=== PATIENT | female | born 1960 ===

== ENCOUNTER 2023-09-15 03:49 | Inpatient (IN) | payer OTHER ==
[2023-09-15] MEDS: CEFAZOLIN 1 GM in DEXTROSE 5%-WATER - 50 ML IVPB ONE (06:01)
[2023-09-15] MEDS ORDERED: ceFAZolin SODIUM 1 GM VIAL ONE ×2 (09:10→18:15)
[2023-09-15 09:31] LABS: BASO % 0.4 % (0-2.0); EOS % 1.7 % (0-4.5); LYMPH % 23.2 % (8-40); MCH 30.6 pg (25.7-33.7); MCHC 34.3 g/dl (32.0-36.0); MEAN CELL VOLUME 89.1 fl (80-96); MEAN PLT VOLUME 7.7 fl (7.5-11.1); MONO % 5.7 % (3.8-10.2); PLATELET COUNT 346 10^3/uL (134-434); RBC 3.92 M/mm3 (3.60-5.2); RDW 22.3 % (11.6-15.6); WHITE BLOOD COUNT 5.5 K/mm3 (4.0-10.0)
[2023-09-15 09:35] LABS: INR 1.08 (0.83-1.09); PROTHROMBIN TIME (PATIENT) 12.5 SEC (9.7-13.0)
[2023-09-15 10:21] LABS: POTASSIUM 4.2 mmol/L (3.5-5.1)
[2023-09-15 10:25] LABS: BLOOD UREA NITROGEN 8.3 mg/dL (7-18); CALCIUM 9.3 mg/dL (8.5-10.1)
[2023-09-15 10:26] LABS: ALBUMIN 3.9 g/dl (3.4-5.0)
[2023-09-15 10:29] LABS: BILIRUBIN,TOTAL 0.4 mg/dL (0.2-1); CREATININE 0.9 mg/dL (0.55-1.3)
[2023-09-15 10:30] LABS: TOT PROT 7.1 g/dl (6.4-8.2)
[2023-09-15] MEDS ORDERED: HEPARIN NA (PORCINE) 5,000 UNITS/ML 1ML VIAL ONE (10:49)
[2023-09-15] MEDS ORDERED: INDOCYANINE GREEN 25 MG/10 ML VIAL IVPUSH ONE (10:49)
[2023-09-15] MEDS ORDERED: BUPIVACAINE HCL/PF 0.25% (2.5MG/ML) 10 ML VIAL ONE ×2 (10:49→13:17)
[2023-09-15] MEDS ORDERED: CEFOXITIN SODIUM 2 GM IVPB ONE (10:50)
[2023-09-15] MEDS ORDERED: ROCURONIUM BROMIDE 50 MG/5 ML SYRINGE ONE ×2 (11:26→14:17)
[2023-09-15] MEDS ORDERED: SUCCINYLCHOLINE CHLORIDE 200 MG/10 ML SYRINGE ONE (11:26)
[2023-09-15] MEDS ORDERED: PROPOFOL 20 ML ONE ×2 (11:26→16:10)
[2023-09-15] MEDS ORDERED: MIDAZOLAM HCL 2 MG/2 ML SINGLE DOSE VIAL ONE (11:27)
[2023-09-15] MEDS ORDERED: PROMETHAZINE HCL 25 MG/1 ML VIAL IVPB PRN (11:39)
[2023-09-15] MEDS ORDERED: ONDANSETRON 4 MG/2 ML VIAL IVPUSH PRN (11:39)
[2023-09-15] MEDS: HEPARIN NA (PORCINE) 5,000 UNITS/ML 1ML VIAL SQ ONE (12:45)
[2023-09-15] MEDS: cefOXitin SODIUM 2 GM VIAL (RESTRICTED TO ID) IVPB ONE (13:00)
[2023-09-15] MEDS: BUPIVACAINE HCL/PF 0.25% (2.5MG/ML) 10 ML VIAL IJ ONE ×2 (13:10)
[2023-09-15] MEDS: INDOCYANINE GREEN 25 MG/10 ML VIAL IVPUSH ONE (14:44)
[2023-09-15] MEDS ORDERED: morphine SULFATE 4 MG/ML VIAL IVPUSH PRN (17:13)
[2023-09-15] MEDS ORDERED: LACTATED RINGERS SOLUTION 1,000 ML/1,000 ML INFUS.BAG IV SCH (18:30)
[2023-09-15 18:33] LABS: POTASSIUM 4.3 mmol/L (3.5-5.1)
[2023-09-15 18:34] LABS: CALCIUM 8.8 mg/dL (8.5-10.1)
[2023-09-15 18:35] LABS: BLOOD UREA NITROGEN 9.6 mg/dL (7-18)
[2023-09-15 18:39] LABS: CREATININE 0.8 mg/dL (0.55-1.3)
[2023-09-15] MEDS: CEFAZOLIN SODIUM 2 GM in DEXTROSE 5%-WATER 100 ML IVPB SCH (18:50)
[2023-09-15] MEDS: ACETAMINOPHEN 1000 MG/100 ML BAG IVPB SCH ×2 (20:24→22:00)
[2023-09-15] MEDS: LACTATED RINGERS SOLUTION 1,000 ML IV SCH (22:00)
[2023-09-15] MEDS: INSULIN ASPART SLIDING SCALE (NOVOLOG) 1 VIAL SQ SCH (22:13)
[2023-09-16] MEDS ORDERED: oxyCODONE HCL 5 MG TABLET PO PRN (09:13)
[2023-09-16 09:14] LABS: BASO % 0.2 % (0-2.0); EOS % 0.1 % (0-4.5); HEMATOCRIT 28.4 % (32.4-45.2); HEMOGLOBIN 9.9 GM/dL (10.7-15.3); LYMPH % 16.3 % (8-40); MCH 30.5 pg (25.7-33.7); MCHC 34.6 g/dl (32.0-36.0); MEAN PLT VOLUME 8.1 fl (7.5-11.1); MONO % 7.4 % (3.8-10.2); PLATELET COUNT 264 10^3/uL (134-434); RBC 3.23 M/mm3 (3.60-5.2); WHITE BLOOD COUNT 6.6 K/mm3 (4.0-10.0)
[2023-09-16] MEDS ORDERED: morphine SULFATE 4 MG/ML VIAL IVPUSH PRN (09:19)
[2023-09-16 09:25] LABS: POTASSIUM 3.9 mmol/L (3.5-5.1)
[2023-09-16 09:29] LABS: BLOOD UREA NITROGEN 5.7 mg/dL (7-18)
[2023-09-16 09:31] LABS: CALCIUM 8.5 mg/dL (8.5-10.1)
[2023-09-16 09:32] LABS: CREATININE 0.8 mg/dL (0.55-1.3); MAGNESIUM 1.8 mg/dL (1.8-2.4); PHOSPHOROUS 3.5 mg/dL (2.5-4.9)
[2023-09-16] MEDS: IBUPROFEN 600 MG TABLET (FP) PO SCH (09:40)
[2023-09-16] MEDS: ENOXAPARIN NA (PORCINE) 40 MG/0.4 ML DISP.SYRIN SQ SCH (09:40)
[2023-09-16] MEDS: ACETAMINOPHEN 500 MG TABLET (FP) PO SCH (17:51)
[2023-09-16] MEDS: LACTATED RINGERS SOLUTION 1,000 ML IV SCH (20:39)
[2023-09-17 08:58] LABS: BASO % 0.3 % (0-2.0); EOS % 1.6 % (0-4.5); HEMOGLOBIN 10.3 GM/dL (10.7-15.3); MCH 30.5 pg (25.7-33.7); MCHC 34.5 g/dl (32.0-36.0); MEAN CELL VOLUME 88.5 fl (80-96); MEAN PLT VOLUME 7.9 fl (7.5-11.1); MONO % 6.5 % (3.8-10.2); NEUT % 73.6 % (42.8-82.8); PLATELET COUNT 289 10^3/uL (134-434); RBC 3.39 M/mm3 (3.60-5.2)
[2023-09-17 09:21] LABS: POTASSIUM 3.8 mmol/L (3.5-5.1)
[2023-09-17 09:33] LABS: BLOOD UREA NITROGEN 8.2 mg/dL (7-18)
[2023-09-17 09:36] LABS: CALCIUM 8.6 mg/dL (8.5-10.1); MAGNESIUM 1.9 mg/dL (1.8-2.4)
[2023-09-17 09:37] LABS: CREATININE 0.6 mg/dL (0.55-1.3); PHOSPHOROUS 2.9 mg/dL (2.5-4.9)
[2023-09-17 16:50] VITALS: BMI 26.5
[2023-09-17 20:32] VITALS: TEMP 98.1
[2023-09-18 07:09] VITALS: BP 101/63; PULSE 72; RESP 20
[2023-09-18 09:52] LABS: BASO % 0.8 % (0-2.0); HEMATOCRIT 34.4 % (32.4-45.2); HEMOGLOBIN 11.5 GM/dL (10.7-15.3); MCH 30.2 pg (25.7-33.7); MCHC 33.4 g/dl (32.0-36.0); MEAN CELL VOLUME 90.4 fl (80-96); MEAN PLT VOLUME 8.5 fl (7.5-11.1); MONO % 4.4 % (3.8-10.2); NEUT % 77.8 % (42.8-82.8); PLATELET COUNT 350 10^3/uL (134-434); RDW 21.9 % (11.6-15.6); WHITE BLOOD COUNT 6.5 K/mm3 (4.0-10.0)
[2023-09-18] MEDS ORDERED: POLYETHYLENE GLYCOL (HEALTHYLAX) 3350 17 GM PACKET PO SCH (10:00)
[2023-09-18 10:17] LABS: POTASSIUM 3.8 mmol/L (3.5-5.1)
[2023-09-18 10:21] LABS: CALCIUM 9.1 mg/dL (8.5-10.1)
[2023-09-18 10:24] LABS: CREATININE 0.7 mg/dL (0.55-1.3); PHOSPHOROUS 2.9 mg/dL (2.5-4.9)
[2023-09-18] MEDS: POLYETHYLENE GLYCOL (HEALTHYLAX) 3350 17 GM PACKET PO ONE (13:07)
[2023-09-19] MEDS ORDERED: POLYETHYLENE GLYCOL (HEALTHYLAX) 3350 17 GM PACKET PO SCH (10:00)
== END 2023-09-18 13:49 | disposition home or self-care (01) | DRG 221 ==
LOC: J2C 03:49 → J8W 20:15
PROVIDERS: ADMIT Surgery; ATTEND Nurse Practitioner Acute Care
PROC: 8E0W0CZ Robotic Assisted Procedure of Trunk Region, Open Approach (ICD-10-PCS; 2023-09-15)
PROC: 0DTF0ZZ Resection of Right Large Intestine, Open Approach (ICD-10-PCS; principal; 2023-09-15 12:00)
DX: C18.0 Malignant neoplasm of cecum (principal); E11.9 Type 2 diabetes mellitus without complications
CPT/HCPCS: 36415; 80048; 80053; 82962; 83735; 84100; 85025; 85610; 86140; 86850; 86900; 86901; 94760; 97116-GP; 97161-GP; J0131; J1644